=== PATIENT | female | born 1955 | race Hispanic/Latino ===

== ENCOUNTER 2017-08-29 14:10 | Outpatient (CLI) | payer BC ==
--- NOTE | 2017-08-29 15:16 | XRay Report ---
XRAY RIGHT HIP TWO VIEWS: 08/29/17 14:10:00 CLINICAL: Osteoarthritis. COMPARISON: 07/26/17 FINDINGS: A total right hip replacement has been performed since the last exam. Normal appearance of the prosthesis. Normal soft tissues. Surgical skin dimitris are in place. The pelvic bones and left hip are unremarkable. IMPRESSION: Status post right total hip replacement.
== END 2017-08-29 14:11 | disposition home or self-care (01) ==
LOC: SPVIMAG 14:10
PROVIDERS: ATTEND Orthopaedic Surgery Sports Medicine
DX: M25.551 Pain in right hip (principal); Z96.641 Presence of right artificial hip joint